=== PATIENT | female | born 1950 | race Caucasian/White ===

== ENCOUNTER 2022-07-31 16:11 | Emergency (ER) | payer MEDICARE, SELFPAY ==
[2022-07-31] MEDS ORDERED: Apixaban 5 MG TAB ONE (19:14)
== END 2022-07-31 19:15 | disposition home or self-care (01) ==
LOC: CSHERS 16:11
DX: I82.622 Acute embolism and thrombosis of deep veins of left upper extremity (principal); I48.91 Unspecified atrial fibrillation; I10 Essential (primary) hypertension; E11.9 Type 2 diabetes mellitus without complications; Z79.84 Long term (current) use of oral hypoglycemic drugs; Z79.01 Long term (current) use of anticoagulants; Z79.899 Other long term (current) drug therapy